=== PATIENT | female | born 1945 | race Caucasian/White ===

== ENCOUNTER → 2018-11-30 | Outpatient (CLI) | payer OTHER | LOC: M.RAD 10:33 | DX: Z12.31 Encounter for screening mammogram for malignant neoplasm of breast (principal) ==

== ENCOUNTER → 2018-12-06 | Outpatient (CLI) | payer OTHER | LOC: M.RAD 10:07 | DX: R92.8 Other abnormal and inconclusive findings on diagnostic imaging of breast (principal) ==

== ENCOUNTER → 2018-12-10 | Outpatient (CLI) | payer OTHER ==
--- NOTE | 2018-12-12 14:11 | PATH ---
[address] [address] PATHOLOGY RPT PROCEDURE Name: RACHEL CHEW Room: [facility]#: [id number] Admission: 12/10/18 Date of : 43 Discharge: Report #: [id number] Path Case #: [id number] [facility] Accession Number: [id number] . 01 Material submitted: . LEFT BREAST CALCIFICATIONS . 01 Clinical history: . Left breast calcifications . 02 Diagnosis: Left breast calcifications, stereotactic biopsy: - Benign breast tissue with mild chronic inflammation and prominent luminal calcifications, negative for atypia. - Minute fragment of benign skin. See comment. LBQ/12/11/2018 . 02 Comment: Reviewed with Dr. Yonas Fernandes who agrees with the diagnosis. (JARON/db; 12/11/2018 . 02 Electronically signed: . Caden Chilel MD, Pathologist NPI- [id number] . 01 Gross description: . Received in formalin labeled "Rachel Chew, left breast calcifications," are multiple needle cores of yellow-jones fibrofatty tissue measuring 3.0 x 2.0 x 0.3 cm in aggregate dimensions. Additionally received in the container is a blue plastic cassette containing multiple needle cores of yellow-jones fibrofatty tissue measuring 2.9 x 1.6 x 0.4 cm in aggregate dimensions. The specimen in the plastic cassette is transferred to A1, and the remaining tissue is submitted in its entirety in cassette A2 and A3. The cold ischemic time is 5 minutes. The total formalin fixation time is 12 hours and 30 minutes. (TSD; 12/10/2018) TOB/TOB . 02 Pathologist provided ICD-10: N61.0, R92.1 . 02 CPT . 146763 Specimen Comment: A courtesy copy of this report has been sent to Specimen Comment: [phone], , . Specimen Comment: Report sent to , and Specimen Comment: A duplicate report has been generated due [place] [address] PATHOLOGY RPT PROCEDURE Name: RACHEL CHEW Room: [facility]#: [id number] Admission: 12/10/18 Date of : 43 Discharge: Report #: [id number] Path Case #: [id number] Performed at: 01 [facility] [place] [address] [facility], [place], [place] [id number] MD Bruno Licona MD Phone: [phone] Performed at: [address] [facility] [address] [place] [id number] MD Caden Chilel MD Phone: [phone]
== END | disposition home or self-care (01) ==
LOC: M.RAD 10:09
DX: N61.0 Mastitis without abscess (principal); R92.1 Mammographic calcification found on diagnostic imaging of breast

== ENCOUNTER → 2020-04-30 | Outpatient (CLI) | payer MEDICARE | LOC: M.LAB 11:59 | PROVIDERS: ATTEND Internal Medicine | DX: U07.1 COVID-19 (principal) ==

== ENCOUNTER → 2021-05-24 | Outpatient (CLI) | payer MEDICARE | LOC: M.RAD 09:00 | PROVIDERS: ATTEND Internal Medicine | DX: I51.7 Cardiomegaly (principal); I10 Essential (primary) hypertension; R06.00 Dyspnea, unspecified; J84.9 Interstitial pulmonary disease, unspecified ==